=== PATIENT | female | born 1950 | race Caucasian/White ===

== ENCOUNTER 2019-07-02 12:41 | Outpatient (CLI) | payer MEDICARE ==
[~2019-07-02 12:41] MED LIST: Iopamidol 370 76% 100 ML VIAL ONE
--- NOTE | 2019-07-02 13:56 | CT ---
CHEST CT WITH CONTRAST: HISTORY: Lung nodules. Bronchiectasis. COMPARISON: 06/18/2019. FINDINGS: Mediastinum: No mass, lymphadenopathy or hematoma. Nonenlarged precarinal lymph node measures 1.0 x 0 .7 cm. Lower neck and axilla: No lymphadenopathy. Heterogeneous thyroid gland. Heart: Normal heart size. No significant pericardial fluid. Aorta: Visualized aorta has a normal caliber. Upper abdomen: Visualized upper abdominal viscera is unremarkable. Trachea and central bronchi: Patent. Pleural space: No pleural effusion. Pneumothorax: None. Pulmonary arteries: Limited evaluation due to technique. No obvious central filling defect. Lungs: Dependent atelectatic changes. Right lun.3 x 0.3 cm pleural-based nodule in the middle lobe. 0.5 x 0.7 cm pleural-based mass in the right lower lobe. Left lun.3 x 0.3 cm nodule along the lateral aspect of the major fissure. 0.8 x 0.3 cm nodule on the lateral aspect of the left major fissure. No significant bronchiectasis. No acute osseous abnormalities. IMPRESSION: Multiple pleural-based nodules involving the left or right lung as described above. Correlate for sub pleural lymph nodes. Follow-up CT in 6-12 months depending upon clinical suspicion. Transcribed Date/Time: 07/02/2019 3:39 PM
== END 2019-07-02 12:42 | disposition home or self-care (01) ==
LOC: SCSCT 12:41
PROVIDERS: ATTEND Family Medicine
DX: R91.8 Other nonspecific abnormal finding of lung field (principal); J47.9 Bronchiectasis, uncomplicated
CPT/HCPCS: 71260; 82565; Q9967

== ENCOUNTER 2020-02-13 11:04 | Outpatient (CLI) | payer MEDICARE ==
[2020-02-13] MEDS ORDERED: Iopamidol 370 76% 100 ML VIAL ONE (13:13)
--- NOTE | 2020-02-13 13:32 | CT ---
CT CHEST WITH CONTRAST CLINICAL INDICATION: Follow-up lung nodule. Cough and shortness of breath on exertion. COMPARISON: 07/02/2019 FINDINGS: Aorta: Minimal vascular calcifications. Thoracic aorta is normal in caliber without evidence of an ao rtic dissection. Lungs: There is a pleural-based nodular density lateral aspect right middle lobe measuring 5 mm x 5 m m with previous measurements of 4 mm x 3 mm. Difference in size could be related to slice selection. Pleural-based pulmonary nodule posterolateral aspect right lower lobe measures 8 mm x 5 mm . Measurement of 7 mm x 5 mm was obtained on prior exam and size difference again may be related to slice selection. Pleural-based nodular densities in the lateral aspect left lower lobe adjacent to th e major fissure are not appreciated on today's exam. There is minimal linear and slight parenchymal density in the region of the lingula probably attributable to atelectasis. There has been interval development of nodular parenchymal densities in the left upper lobe which may be related to infectious or inflammatory process. However, follow-up to resolution is recommended. No pleural effusion is evident. Mediastinum: There is no evidence of lymphadenopathy. Thyroid gland: Heterogeneous 2 cm nodule left lobe of thyroid gland also seen on prior exam as well a s high-resolution CT exam on 06/18/2019 and similar in size. Irregular low-density areas also seen in the right lobe of thyroid gland which is also a stable finding. Osseous structures: Degenerative changes are seen in the spine with hemangioma again seen in a thorac ic vertebral body. Chest wall: No abnormality visualized. Upper abdomen: Within normal limits for phase of imaging. IMPRESSION: 1. Interval development of nodular appearing parenchymal densities in the left upper lobe. Findings m ay be related to infectious or inflammatory process. Follow-up to complete resolution is recommended. 2. Pleural-based nodular densities right middle lobe and right lower lobe with slightly larger measur ements obtained on the current study which could potentially be related to slice selection. Pleural-based nodular densities left lung base are not appreciated on the current study. 3. Bilateral thyroid nodules. Nonemergent thyroid ultrasound is recommended.
== END 2020-02-13 11:05 | disposition home or self-care (01) ==
LOC: BICCT 11:04
PROVIDERS: ATTEND Family Medicine
DX: R91.8 Other nonspecific abnormal finding of lung field (principal); E04.2 Nontoxic multinodular goiter
CPT/HCPCS: 71260; 82565; Q9967

== ENCOUNTER 2023-09-13 12:35 | Outpatient (CLI) | payer MEDICARE | END 2023-09-13 12:36 | disposition home or self-care (01) | LOC: CT 12:35 | PROVIDERS: ATTEND Internal Medicine Cardiovascular Disease | DX: I82.4Z2 Acute embolism and thrombosis of unspecified deep veins of left distal lower extremity (principal); R91.8 Other nonspecific abnormal finding of lung field; E04.1 Nontoxic single thyroid nodule | CPT/HCPCS: 71260; 82565 ==